=== PATIENT | male | born 1940 | race Caucasian/White ===

== ENCOUNTER 2025-05-18 08:57 | Emergency (ER) | payer OTHER ==
[~2025-05-18] VITALS: Ht 167.6 cm; Wt 68.5 kg
[~2025-05-18 08:57] MED LIST: ASPI81CH; PRAV20 PO; Prinivil10 MG PO
[2025-05-18 10:57] LABS: Source, Urine Clean Catch
[2025-05-18 11:02] LABS: Bilirubin, Urine Neg (Neg); Color, Urine Yellow (P-Yellow); Glucose Qualitative, Urine Neg (Neg); Ketones, Urine Neg (Neg); Leukocyte Esterase, Urine Neg (Neg); Protein, Urine 2+ (Neg); Specific Gravity, Urine 1.020 (1.003-1.022); Urobilinogen, Urine 1+ (Normal)
[2025-05-18 11:13] LABS: Red Blood Cells, Urine 0-2 /hpf (0-2); White Blood Cells, Urine 0-2 /hpf (0-5)
[2025-05-18 11:27] LABS: U Amphetamine Screen Not Detected; U Barbituate Screen Not Detected; U Benzodiazapine Screen Not Detected; U Buprenorphine Screen Not Detected; U Cannabinoids Screen Not Detected; U Cocaine Screen Not Detected; U Methadone Screen Not Detected; U Methamphetamine Screen Not Detected; U Opiates Screen Not Detected; U Oxycodone Screen Not Detected; U Phencyclidine Screen Not Detected
[2025-05-18 11:31] LABS: BASOPHILS ABSOLUTE AUTO 0.06 K/mm3 (0.00-0.23); BASOPHILS PERCENT AUTO 1 % (0-2); EOSINOPHILS ABSOLUTE AUTO 0.15 K/mm3 (0.00-0.68); EOSINOPHILS PERCENT AUTO 2 % (0-6); Hematocrit 43.9 % (37.0-53.0); Hemoglobin 14.7 g/dL (13.5-17.5); IMMATURE GRAN ABSOLUTE AUTO 0.03 K/mm3 (0.00-0.10); IMMATURE GRAN PERCENT AUTO 0 % (0-1); LYMPHOCYTES ABSOLUTE AUTO 0.98 K/mm3 (0.84-5.20); LYMPHOCYTES PERCENT AUTO 12 % (21-46); MONOCYTES ABSOLUTE AUTO 0.86 K/mm3 (0.16-1.47); MONOCYTES PERCENT AUTO 10 % (4-13); Mean Corpuscular HGB Conc 33.5 g/dL (31.5-36.5); Mean Corpuscular Volume 94 fL (80-100); NEUTROPHILS ABSOLUTE AUTO 6.28 K/mm3 (1.96-9.15); NEUTROPHILS PERCENT AUTO 75 % (41-73); NRBC ABSOLUTE 0.00 K/mm3 (0.00-0.02); NRBC Auto 0.0 /100 WBC (0.0-0.2); Platelet Count 202 K/mm3 (150-400); RDW Coefficient Variation 13.2 % (11.7-14.2); RDW Standard Deviation 46.2 fL (35.1-46.3)
[2025-05-18 11:51] LABS: Ethanol (Alcohol), Blood, Med <3 mg/dL; Salicylate <1.7 mg/dL (2.8-20.0)
[2025-05-18 11:52] LABS: Alanine Aminotransfer (ALT/SGP 24 U/L (12-78); Albumin, Blood 3.8 g/dL (3.4-5.0); Albumin/Globulin Ratio 1.4 (0.8-1.8); Anion Gap 8 mmol/L (3-11); Aspartate Aminotrans (AST/SGOT 31 U/L (12-37); Bilirubin, Total 1.8 mg/dL (0.1-1.0); Blood Urea Nitrogen 16 mg/dL (8-24); CO2, Blood 29 mmol/L (21-32); Calcium, Blood 8.8 mg/dL (8.5-10.1); Chloride, Blood 104 mmol/L (98-108); Creatinine, Blood 0.88 mg/dL (0.60-1.20); Globulin, Blood 2.8 g/dL (2.2-4.0); Glucose, Blood 114 mg/dL (70-99); Potassium, Blood 3.6 mmol/L (3.5-5.5); Sodium, Blood 137 mmol/L (136-145); Total Protein, Blood 6.6 g/dL (6.4-8.2)
[2025-05-18 11:55] LABS: Acetaminophen, Random <2.0 ug/mL (10.0-30.0)
[2025-05-18] MEDS ORDERED: LORazepam 2 MG/ML 1ML Injection IV ONE (12:25)
[2025-05-19] MEDS ORDERED: Ziprasidone Mesylate 20 MG / Vial IM ONE (03:20)
[2025-05-19] MEDS ORDERED: CELEXA10 MG PO (09:27)
[2025-05-19] MEDS ORDERED: DONEPEZIL HCL10 M1 PO (09:27)
[2025-05-19] MEDS ORDERED: QUETIAPINE FUMA25 MG PO (09:27)
[2025-05-19] MEDS ORDERED: QUETIAPINE FUMA50 M2 PO (09:28)
[2025-05-19 11:16] VITALS: BP 136/70
== END 2025-05-19 17:04 | disposition home or self-care (01) ==
LOC: ER 08:57 → EOR 08:58 → ER 08:58 → EOR 08:58 → ER 05-19 17:04
PROVIDERS: Physician Assistant
DX: R45.850 Homicidal ideations (principal); F03.911 Unspecified dementia, unspecified severity, with agitation
CPT/HCPCS: 80053; 80320; 81001; 85025; 96372; 96374; 99285-25; A9270; G0378; G0480; J2060; J3486